=== PATIENT | female | born 1995 | race Two or more races ===

== ENCOUNTER 2019-01-31 04:57 | Emergency (ER) | payer SELFPAY ==
[~2019-01-31] VITALS: Ht 167.6 cm; Wt 81.0 kg
--- NOTE | 2019-01-31 05:14 | NUR ---
PT BIBS. C/O "HAD ARGUMENT AT A DEMOCRAT WITH MY BOYFRIEND. I WAS ACTING DRAMATIC WHEN I TOOK 7X 500MG TYLENOLS. NOT TRYING TO HARM MYSELF. I FEEL STUPID NOW" -SI -HI PT AOX4. AMBULATORY W.STEADY GAIT.
[2019-01-31] MEDS ORDERED: ONDANSETRON HCL/PF 4 MG/2 ML VIAL ONE (05:17)
[2019-01-31 05:30] LABS: BASOPHILS # (AUTO) 0.1 /CMM (0.0-0.2); BASOPHILS % (AUTO) 0.6 % (0.0-2.0); EOSINOPHILS % (AUTO) 1.6 % (0.0-6.0); HEMATOCRIT 44 % (33-45); HEMOGLOBIN 14.3 g/dL (11.5-14.8); LYMPHOCYTES # (AUTO) 3.6 /CMM (0.8-4.8); LYMPHOCYTES % (AUTO) 41.3 % (20.0-44.0); MEAN CORPUSCULAR HGB CONC 33 g/dl (31.0-36.0); MEAN CORPUSCULAR VOLUME 82 fL (82-100); MONOCYTES # (AUTO) 0.7 /CMM (0.1-1.30); MONOCYTES % (AUTO) 7.8 % (2.0-12.0); NEUTROPHILS # (AUTO) 4.2 /CMM (1.8-8.9); NEUTROPHILS % (AUTO) 48.7 % (43.0-81.0); PLATELET COUNT (AUTO) 297 /CMM (150-450); WHITE BLOOD COUNT (AUTO) 8.6 K/uL (4.3-11.0)
[2019-01-31] MEDS ORDERED: IV NS 0.9% 1,000 ML BAG IV ONE (05:30)
[2019-01-31] MEDS ORDERED: ONDANSETRON HCL/PF 4 MG/2 ML VIAL IVP ONE (05:30)
[2019-01-31 05:34] LABS: APPEARANCE,URINE CLEAR (CLEAR); BILIRUBIN,URINE NEGATIVE (NEGATIVE); BLOOD, URINE NEGATIVE Ery/uL (NEGATIVE); COLOR,URINE YELLOW (YELLOW); KETONES,URINE NEGATIVE (NEGATIVE); LEUKOCYTE ESTERASE ,URINE NEGATIVE (NEGATIVE); NITRITE, URINE NEGATIVE (NEGATIVE); PROTEIN,URINE NEGATIVE (NEGATIVE); UGLUCOSE NEGATIVE (NEGATIVE); UROBILINOGEN,URINE 0.2 EU/dL (0.2)
[2019-01-31 05:38] LABS: CALCIUM, SERUM 8.6 mg/dL (8.5-10.1); CREATININE 0.7 mg/dL (0.6-1.3); POTASSIUM 3.8 mmol/L (3.5-5.1)
[2019-01-31 05:43] LABS: ALBUMIN 4.1 g/dL (3.4-5.0); BILIRUBIN,DIRECT 0.1 mg/dL (0.0-0.2); BILIRUBIN,TOTAL 0.4 mg/dL (0.2-1.0); TOTAL PROTEIN, SERUM 8.1 g/dL (6.4-8.2)
[2019-01-31 05:50] LABS: SALICYLATE 1.5 mg/dL (2.8-20.0)
[2019-01-31] MEDS ORDERED: ACTIVATED CHARCOAL 25 GM/120 ML TUBE ONE ×2 (06:21→06:24)
[2019-01-31] MEDS ORDERED: ACTIVATED CHARCOAL 25 GM/120 ML TUBE PO ONE (06:30)
--- NOTE | 2019-01-31 06:47 | NUR ---
PT DUE FOR REDRAW OF TYLENOL LEVEL AT 0730. WILL MEDICALLY CLEAR AFTERWARDS.
--- NOTE | 2019-01-31 09:55 | NUR ---
GROUTER HELPER AT BEDSIDE FOR REPEAT ALCOHOL DRAW.
--- NOTE | 2019-01-31 11:15 | NUR ---
ABHIJEET RN AT BEDSIDE FOR PSYCH EVAL.
--- NOTE | 2019-01-31 12:16 | NUR ---
MEDICALLY AND PSYCH CLEARED. PT DENIES ANY SI/HI. IVHL DISCONTINUED. D/C HOME IN STABLE CONDITION.
[2019-01-31 12:20] VITALS: BP 115/60
== END 2019-01-31 12:22 | disposition home or self-care (01) ==
LOC: ER 05:02
DX: T39.1X2A Poisoning by 4-Aminophenol derivatives, intentional self-harm, initial encounter (principal); T14.91XA Suicide attempt, initial encounter; F32.9 Major depressive disorder, single episode, unspecified; F10.129 Alcohol abuse with intoxication, unspecified; E03.9 Hypothyroidism, unspecified; Y90.5 Blood alcohol level of 100-119 mg/100 ml; Z60.2 Problems related to living alone; Y92.89 Other specified places as the place of occurrence of the external cause
CPT/HCPCS: 36415; 80048; 80076; 80305; 80307 ×3; 80329; 81001; 84703; 85025; 96374; 99283; G0480 ×2; J2405; J7030; 81000-TC